=== PATIENT | female | born 2000 | race Caucasian/White ===

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

== ENCOUNTER 2020-12-28 19:27 | Emergency (ER) | payer BC ==
[2020-12-28 19:42] VITALS: BP 124/78; PULSE 81
--- NOTE | 2020-12-28 20:09 | EDM.PDOC ---
ED HPI GENERAL MEDICAL PROBLEM - General Chief Complaint: Neurological Problem Stated Complaint: DIZZY/LIGHTHEADED Time Seen by Provider: 12/28/20 20:00 - History of Present Illness INITIAL COMMENTS - FREE TEXT/NARRATIVE: 20-year-old female presents the emergency room with dizziness. Is been going on for about 2 to 3 hours. It seems to be worse from looking from side to side it does not seem to favor one side or the other. Patient has not had any recent illnesses no nausea no vomiting no diarrhea. She has not had any recent fevers chills headaches or other complaints. She has not had any headaches no areas of numbness or weakness. - Related Data Allergies Allergy/AdvReac Type Severity Reaction Status Date / Time No Known Allergies Allergy Verified 12/28/20 19:42 Home Meds: Home Meds . [No Known Home Meds] 12/28/20 [History] Past Medical History - Past Health History Medical/Surgical History: Denies Medical/Surgical History Musculoskeletal History: Reports: Other (See Below) Other Musculoskeletal History: left shoulder superior labrum lesion Neurological History: Reports: None Psychiatric History: Reports: Anxiety, Depression Endocrine/Metabolic History: Reports: None Hematologic History: Reports: None Immunologic History: Reports: None Oncologic (Cancer) History: Reports: None Dermatologic History: Reports: None - Past Surgical History Head Surgeries/Procedures: Reports: None Endocrine Surgical History: Reports: None Neurological Surgical History: Reports: None Oncologic Surgical History: Reports: None Dermatological Surgical History: Reports: None Social & Family History - Tobacco Use Tobacco Use Status *Q: Never Tobacco User - Caffeine Use Caffeine Use: Reports: None, Soda - Recreational Drug Use Recreational Drug Use: No ED ROS GENERAL - Review of Systems Review Of Systems: See Below Constitutional: Reports: No Symptoms HEENT: Reports: Other (Some dizziness) Respiratory: Reports: No Symptoms Cardiovascular: Reports: No Symptoms Endocrine: Reports: No Symptoms GI/Abdominal: Reports: Nausea. Denies: Abdominal Pain, Vomiting : Reports: No Symptoms Musculoskeletal: Reports: No Symptoms Neurological: Reports: Dizziness. Denies: Headache Psychiatric: Reports: No Symptoms Hematologic/Lymphatic: Reports: No Symptoms ED EXAM, DIZZINESS - Physical Exam Exam: See Below Exam Limited By: No Limitations General Appearance: Alert, No Apparent Distress Ears: Normal External Exam, Normal Canal, Hearing Grossly Normal Nose: Normal Inspection, Normal Mucosa Throat/Mouth: Normal Inspection, Normal Lips, Normal Teeth, Normal Gums, Normal Oropharynx, Normal Voice, No Airway Compromise Head Exam: Atraumatic, Normocephalic Vertigo: worsens with head to L Neck: Normal Inspection, Supple, Non-Tender, Full Range of Motion. No: Lymph adenopathy (L), Lymphadenopathy (R) Respiratory/Chest: No Respiratory Distress, Lungs Clear, Normal Breath Sounds Cardiovascular: Regular Rate, Rhythm, No Edema, No Murmur #1 Interpretation EKG Date: 12/28/20 Rhythm: NSR Rate (Beats/Min): 72 [place]: Normal P-Wave: Present QRS: Normal ST-T: Normal QT: Normal Comparison: NA - No Prior EKG EKG Interpretation Comments: Normal EKG Course - Vital Signs Last Recorded V/S: Last Vital Signs Temp 37.3 C 12/28/20 19:38 Pulse 81 12/28/20 19:38 Resp 18 12/28/20 19:38 BP 124/78 12/28/20 19:38 Pulse Ox 98 12/28/20 19:38 Orthostatic Blood Pressure [ 133/81 Standing] Orthostatic Blood Pressure [ 120/75 Sitting] Orthostatic Blood Pressure [ 117/75 Supine] - Orders/Labs/Meds Orders: Active Orders 24 hr Category Date Time Status EKG Documentation Completion [RC] STAT Care 12/28/20 20:24 Active Orthostatic Vital Signs [RC] ASDIRECTED Care 12/28/20 20:19 Active Labs: Laboratory Tests 12/28/20 12/28/20 12/28/20 Range/Units 20:21 20:21 20:21 WBC 6.26 (3.98-10.04) K/mm3 RBC 4.29 (3.98-5.22) M/mm3 Hgb 12.3 (11.2-15.7) gm/dl Hct 38.7 (34.1-44.9) % MCV 90.2 (79.4-94.8) fl MCH 28.7 (25.6-32.2) pg MCHC 31.8 L (32.2-35.5) g/dl RDW Std Deviation 40.9 (36.4-46.3) fL Plt Count 219 (182-369) K/mm3 MPV 10.7 (9.4-12.3) fl Neut % (Auto) 65.6 (34.0-71.1) % Lymph % (Auto) 26.4 (19.3-51.7) % Whitman % (Auto) 7.0 (4.7-12.5) % Eos % (Auto) 0.5 L (0.7-5.8) Baso % (Auto) 0.3 (0.1-1.2) % Neut # (Auto) 4.11 (1.56-6.13) K/mm3 Lymph # (Auto) 1.65 (1.18-3.74) K/mm3 Whitman # (Auto) 0.44 H (0.24-0.36) K/mm3 Eos # (Auto) 0.03 L (0.04-0.36) K/mm3 Baso # (Auto) 0.02 (0.01-0.08) K/mm3 Sodium 142 (136-145) mEq/L Potassium 4.0 (3.5-5.1) mEq/L Chloride 106 (98-107) mEq/L Carbon Dioxide 26 (21-32) mEq/L Anion Gap 14.0 (5-15) BUN 14 (7-18) mg/dL Creatinine 0.8 (0.55-1.02) mg/dL Est Cr Clr Drug Dosing 92.79 mL/min Estimated GFR (MDRD) > 60 (>60) mL/min BUN/Creatinine Ratio 17.5 (14-18) Glucose 90 (74-106) mg/dL Calcium 8.7 (8.5-10.1) mg/dL Magnesium 1.9 (1.8-2.4) mg/dl Total Bilirubin 0.2 (0.2-1.0) mg/dL AST 16 (15-37) U/L ALT 28 (14-59) U/L Alkaline Phosphatase 37 L (46-116) U/L Total Protein 6.8 (6.4-8.2) g/dl Albumin 3.4 (3.4-5.0) g/dl Globulin 3.4 gm/dL Albumin/Globulin Ratio 1.0 (1-2) HCG, Qual (NEGATIVE) 12/28/20 Range/Units 20:21 WBC (3.98-10.04) K/mm3 RBC (3.98-5.22) M/mm3 Hgb (11.2-15.7) gm/dl Hct (34.1-44.9) % MCV (79.4-94.8) fl MCH (25.6-32.2) pg MCHC (32.2-35.5) g/dl RDW Std Deviation (36.4-46.3) fL Plt Count (182-369) K/mm3 MPV (9.4-12.3) fl Neut % (Auto) (34.0-71.1) % Lymph % (Auto) (19.3-51.7) % Whitman % (Auto) (4.7-12.5) % Eos % (Auto) (0.7-5.8) Baso % (Auto) (0.1-1.2) % Neut # (Auto) (1.56-6.13) K/mm3 Lymph # (Auto) (1.18-3.74) K/mm3 Whitman # (Auto) (0.24-0.36) K/mm3 Eos # (Auto) (0.04-0.36) K/mm3 Baso # (Auto) (0.01-0.08) K/mm3 Sodium (136-145) mEq/L Potassium (3.5-5.1) mEq/L Chloride (98-107) mEq/L Carbon Dioxide (21-32) mEq/L Anion Gap (5-15) BUN (7-18) mg/dL Creatinine (0.55-1.02) mg/dL Est Cr Clr Drug Dosing mL/min Estimated GFR (MDRD) (>60) mL/min BUN/Creatinine Ratio (14-18) Glucose (74-106) mg/dL Calcium (8.5-10.1) mg/dL Magnesium (1.8-2.4) mg/dl Total Bilirubin (0.2-1.0) mg/dL AST (15-37) U/L ALT (14-59) U/L Alkaline Phosphatase (46-116) U/L Total Protein (6.4-8.2) g/dl Albumin (3.4-5.0) g/dl Globulin gm/dL Albumin/Globulin Ratio (1-2) HCG, Qual Negative (NEGATIVE) Meds: Medications Discontinued Medications Generic Name Dose Route Start Last Admin Trade Name Freq PRN Reason Stop Dose Admin Lactated Ringer's 1,000 mls @ 999 mls/hr 12/28/20 20:31 12/28/20 20:47 Ringers, Lactated IV 12/28/20 21:31 999 mls/hr .BOLUS ONE Administration - Re-Assessments/Exams Free Text/Narrative Re-Assessment/Exam: 12/28/20 21:56 Received a liter of fluid but is not completely better she is improved some. But every time she looks to the left she develops this sensation of dizziness. Discussed the pros and cons of treatment at this time we will hold off on medical management as often the medications prolong the nature of the illness and delay recovery. The patient will be careful with change of position and will only move her head to the left slowly. If needed they could use meclizine this can be obtained [id number] but I have really urged her not to do this. She should follow-up in clinic Saturday if needed. We did discuss some simple exercises that may help with this. Departure - Departure Time of Disposition: 21:59 Disposition: Home, Self-Care 01 Clinical Impression: Benign positional vertigo - Discharge Information Instructions: How to Perform the Terell Maneuver, Benign Positional Vertigo Referrals: PCP,None [Primary Care Provider] - Solitario Guillen NP [Nurse Practitioner] - Forms: ED Department Discharge Additional Instructions: Return to the emergency room with any questions problems or worsening symptoms. Use great caution with sudden change of position. Take your time as we discussed. Do those gentle sit ups 4 or 5 4 times a day. Looking to the left. If it causes severe dizziness decrease the number that you do until it is more tolerable. Then gently increase as tolerated. If you absolutely must take something for the dizziness you can get meclizine 25 mg. Take no more than 3 daily and do not use unless absolutely necessary it Follow-up in the clinic at the end of this week if needed. Sepsis Event Note (ED) - Evaluation Sepsis Screening Result: No Definite Risk - Focused Exam Vital Signs: Vital Signs Temp Pulse Resp BP Pulse Ox 12/28/20 19:38 37.3 C 81 18 124/78 98 - My Orders Last 24 Hours: My Active Orders 12/28/20 20:19 Orthostatic Vital Signs [RC] ASDIRECTED 12/28/20 20:24 EKG Documentation Completion [RC] STAT - Assessment/Plan Last 24 Hours: My Active Orders 12/28/20 20:19 Orthostatic Vital Signs [RC] ASDIRECTED 12/28/20 20:24 EKG Documentation Completion [RC] STAT
[2020-12-28] MEDS ORDERED: Lactated Ringers 1,000 ML IV ONE (20:31)
== END 2020-12-28 22:13 | disposition home or self-care (01) ==
LOC: JD.ED 19:27
DX: H81.10 Benign paroxysmal vertigo, unspecified ear (principal)
CPT/HCPCS: 36415; 80053; 83735; 84703; 85025; 93005; 99284; J7120; 93010; 99283

== ENCOUNTER 2021-07-21 15:41 | Emergency (ER) | payer BC ==
[2021-07-21 16:27] VITALS: BP 114/76; PULSE 79
== END 2021-07-21 17:30 | disposition left against medical advice (07) ==
LOC: JD.ED 15:41
DX: O99.891 Other specified diseases and conditions complicating pregnancy (principal); Z53.21 Procedure and treatment not carried out due to patient leaving prior to being seen by health care provider

== ENCOUNTER 2022-01-01 06:23 | Inpatient (IN) | payer BC, MEDICAID ==
[2022-01-01] MEDS ORDERED: Sodium Chloride 0.9% 10 ML Syringe FLUSH PRN (19:12)
[2022-01-01] MEDS ORDERED: Nalbuphine 10 MG/1 ML Vial IVPUSH PRN (19:12)
[2022-01-01] MEDS ORDERED: Oxytocin/Lactated Ringers 10 UNIT/1,000 ML BAG IV SCH (19:15)
[2022-01-01] MEDS: Misoprostol 25 MCG (1/4 of 100 MCG) Tab VAG SCH (20:05)
[2022-01-01] MEDS ORDERED: Sodium Chloride 0.9% 10 ML Syringe FLUSH SCH (21:00)
[2022-01-02] MEDS ORDERED: Lidocaine 1% 10 ML MDV ONE
[2022-01-02] MEDS ORDERED: Bupivacaine 0.25% 10 ML SDV ONE
[2022-01-02] MEDS: Misoprostol 25 MCG (1/4 of 100 MCG) Tab VAG SCH ×2 (00:01→10:04)
[2022-01-02] MEDS: Lactated Ringers 1,000 ML IV SCH ×3 (03:03→08:47)
[2022-01-02] MEDS ORDERED: Penicillin G Potassium 5 MILLUNITS in Sodium Chloride 0.9% 100 ML IV ONE (04:04)
[2022-01-02] MEDS ORDERED: ePHEDrine 50 MG/ML SDV IVPUSH PRN (04:30)
[2022-01-02] MEDS ORDERED: fentaNYL 100 MCG/2 ML SDV EPIDUR PRN (04:30)
[2022-01-02] MEDS ORDERED: diphenhydrAMINE 50 MG/ML SDV IVPUSH PRN (04:30)
[2022-01-02] MEDS ORDERED: Bupivacaine/fentaNYL/NS 100 ML Bag EPIDUR PRN (04:30)
[2022-01-02] MEDS ORDERED: Lidocaine 1% 50 ML MDV ONE (06:33)
[2022-01-02] MEDS ORDERED: Benzocaine/Menthol 20%-0.5% Spray 78 GM Cannister TOP PRN (07:44)
[2022-01-02] MEDS ORDERED: Witch Hazel Medicated Pads 40/Jar TOP PRN (07:44)
[2022-01-02] MEDS ORDERED: Acetaminophen 325 MG Tab PO PRN (07:44)
[2022-01-02] MEDS: Ibuprofen 600 MG Tab PO PRN ×2 (07:59→19:36)
[2022-01-02] MEDS ORDERED: Penicillin G Potassium 2.5 MILLUNITS in Sodium Chloride 0.9% 100 ML IV SCH (08:30)
[2022-01-04 09:01] VITALS: BP 138/80; PULSE 80
== END 2022-01-04 09:20 | disposition home or self-care (01) | DRG 560 ==
LOC: JD.OB 06:23 → OBSVTOIN 01-02 06:23 → JD.OB 01-02 06:24
PROVIDERS: ADMIT Family Medicine; ATTEND Family Medicine
PROC: 10E0XZZ Delivery of Products of Conception, External Approach (ICD-10-PCS; principal; 2022-01-02)
PROC: 3E0P7VZ Introduction of Hormone into Female Reproductive, Via Natural or Artificial Opening (ICD-10-PCS; 2022-01-02)
PROC: 3E0R3BZ Introduction of Anesthetic Agent into Spinal Canal, Percutaneous Approach (ICD-10-PCS; 2022-01-02)
PROC: 00HU33Z Insertion of Infusion Device into Spinal Canal, Percutaneous Approach (ICD-10-PCS; 2022-01-02)
PROC: 10907ZC Drainage of Amniotic Fluid, Therapeutic from Products of Conception, Via Natural or Artificial Opening (ICD-10-PCS; 2022-01-02)
PROC: 0KQM0ZZ Repair Perineum Muscle, Open Approach (ICD-10-PCS; 2022-01-02)
DX: O48.0 Post-term pregnancy (principal); Z3A.40 40 weeks gestation of pregnancy; Z37.0 Single live birth; O69.81X0 Labor and delivery complicated by cord around neck, without compression, not applicable or unspecified; O70.1 Second degree perineal laceration during delivery; Z20.822 Contact with and (suspected) exposure to COVID-19
CPT/HCPCS: 36415; 51701; 59025; 59409; 85025; 86592; 86850; 86900; 86901; A9270-GY; J2001; J2300; J2540; J2590; J3010; J3490; J7120; U0002